=== PATIENT | male | born 1995 | race Two or more races ===

== ENCOUNTER 2017-10-09 13:54 | Emergency (ER) | payer SELFPAY ==
[~2017-10-09] VITALS: Ht 177.8 cm; Wt 90.7 kg
--- NOTE | 2017-10-09 14:15 | NUR ---
PT CAME IN WITH C/O RIGHT FLANK PAIN X 1 MONTH. NAD NOTED. DENIES TRAUMA. VSS. SEEN BY PA FOR EVAL. SAFETY AND COMFORT MEASURES PROVIDED. WILL MONITOR.
--- NOTE | 2017-10-09 14:40 | NUR ---
URINE SAMPLE OBTAINED, SENT.
--- NOTE | 2017-10-09 14:51 | NUR ---
IV ACCESS STARTED. BLOOD DRAWN FOR LABS.
[2017-10-09 14:57] LABS: APPEARANCE,URINE Clear (CLEAR); BILIRUBIN,URINE Negative (NEGATIVE); BLOOD, URINE Negative Ery/uL (NEGATIVE); COLOR,URINE Yellow (YELLOW); KETONES,URINE Negative (NEGATIVE); LEUKOCYTE ESTERASE ,URINE Negative (NEGATIVE); NITRITE, URINE Negative (NEGATIVE); PH,URINE 7.5 (5.0-8.0); PROTEIN,URINE Negative (NEGATIVE); UGLUCOSE Negative (NEGATIVE)
[2017-10-09 15:02] LABS: CREATININE 0.8 mg/dL (0.6-1.3); POTASSIUM 4.2 mmol/L (3.5-5.1)
[2017-10-09 15:08] LABS: ALBUMIN 3.7 g/dL (3.4-5.0); BACTERIA,URINE None seen /HPF (None Seen); BILIRUBIN,DIRECT 0.1 mg/dL (0.0-0.2); BILIRUBIN,TOTAL 0.4 mg/dL (0.2-1.0); SQUAMOUS EPITHELIAL CELL,UR Few /HPF (None Seen); TOTAL PROTEIN, SERUM 7.8 g/dL (6.4-8.2); WBC,URINE 0-3 /HPF (0-3)
[2017-10-09 15:15] LABS: BASOPHILS # (AUTO) 0.1 /CMM (0.0-0.2); BASOPHILS % (AUTO) 0.7 % (0.0-2.0); EOSINOPHILS % (AUTO) 2.2 % (0.0-6.0); HEMATOCRIT 44 % (39-51); HEMOGLOBIN 15.3 g/dL (13.5-17.5); LYMPHOCYTES # (AUTO) 1.7 /CMM (0.8-4.8); LYMPHOCYTES % (AUTO) 22.9 % (20.0-44.0); MEAN CORPUSCULAR HGB CONC 35 g/dl (31.0-36.0); MEAN CORPUSCULAR VOLUME 89 fL (80-96); MONOCYTES # (AUTO) 0.5 /CMM (0.1-1.30); MONOCYTES % (AUTO) 6.5 % (2.0-12.0); NEUTROPHILS # (AUTO) 5.1 /CMM (1.8-8.9); NEUTROPHILS % (AUTO) 67.7 % (43.0-81.0); PLATELET COUNT (AUTO) 298 /CMM (150-450); RDW COEFFICIENT OF VARIATION 12.8 (11.5-15.0); RED BLOOD CELL COUNT(AUTO) 4.96 MIL/uL (4.5-6.0); WHITE BLOOD COUNT (AUTO) 7.6 K/uL (4.3-11.0)
--- NOTE | 2017-10-09 16:07 | NUR ---
Patient discharged to home in stable condition. Written and verbal after care instructions given. Patient verbalizes understanding of instruction.
--- NOTE | 2017-10-09 16:07 | NUR ---
IV removed. Catheter intact and site benign. Pressure and 4x4 applied to site. No bleeding noted.
[2017-10-09 16:10] VITALS: BP 126/66
== END 2017-10-09 16:11 | disposition home or self-care (01) ==
LOC: ER 13:55
DX: R10.9 Unspecified abdominal pain (principal); F17.200 Nicotine dependence, unspecified, uncomplicated; Z60.2 Problems related to living alone
CPT/HCPCS: 36415; 74176; 80048; 80076; 81001; 83690; 85025; 99285; A4606; Z7610; 81000-TC

== ENCOUNTER 2019-05-17 04:48 | Emergency (ER) | payer SELFPAY ==
[~2019-05-17] VITALS: Ht 177.8 cm; Wt 90.7 kg
--- NOTE | 2019-05-17 05:05 | NUR ---
PT BIBS. BLUNT HEAD TRAUMA W/ 2X4 ON R OCCIPITAL AREA. NOTED SWELLING. BLUNT TRAUMA TO R ANKLE W/ 2X4 NOTED SWELLING ABRASION. DENIES KO. PT AAOX4, BREATHING EVENLY AND UNLABORED ON RA W/ NAD NOTED. PT CONNECTED TO THE MONITOR AND POX
[2019-05-17] MEDS ORDERED: ACETAMINOPHEN ES 500 MG TABLET ONE (05:25)
[2019-05-17] MEDS ORDERED: ACETAMINOPHEN 325 MG TABLET PO ONE (05:30)
--- NOTE | 2019-05-17 07:48 | NUR ---
Patient discharged to home in stable condition. Written and verbal after care instructions given. Patient verbalizes understanding of instruction.
[2019-05-17 07:50] VITALS: BP 127/84
== END 2019-05-17 07:50 | disposition home or self-care (01) ==
LOC: ER 04:49
DX: S82.891A Other fracture of right lower leg, initial encounter for closed fracture (principal); S00.03XA Contusion of scalp, initial encounter; F10.10 Alcohol abuse, uncomplicated; F17.200 Nicotine dependence, unspecified, uncomplicated; Y90.9 Presence of alcohol in blood, level not specified; Z98.890 Other specified postprocedural states; Z88.5 Allergy status to narcotic agent; Y08.89XA Assault by other specified means, initial encounter; Y93.89 Activity, other specified; Y92.89 Other specified places as the place of occurrence of the external cause; Y99.8 Other external cause status
CPT/HCPCS: 70450-TC; 73610-TC